=== PATIENT | male | born 1965 | race Caucasian/White ===

== ENCOUNTER 2016-12-09 10:25 | Inpatient (IN) | payer MEDICAID, OTHER ==
[~2016-12-09] VITALS: Ht 170.2 cm; Wt 58.0 kg
[~2016-12-09 10:25] MED LIST: AMLO-511 PO; MIRT15 PO; OLAN7.5T2 PO
[2016-12-09 10:45] LABS: BASOPHILS % (AUTO) 0.6 % (0.0-2.0); EOSINOPHILS % (AUTO) 2.5 % (1.0-6.0); HEMATOCRIT 49.8 % (41-53); HEMOGLOBIN 16.7 g/dL (13.5-17.5); LYMPHOCYTES # (AUTO) 3.3 K/uL (1.0-4.8); LYMPHOCYTES % (AUTO) 27.1 % (22.0-44.0); MEAN CORPUSCULAR HEMOGLOBIN 33.1 pg (26.0-34.0); MEAN CORPUSCULAR HGB CONC 33.6 G/dL (31.0-37.0); MEAN CORPUSCULAR VOLUME 99 fL (80-100); MONOCYTES # (AUTO) 0.7 K/uL (0.1-1.0); MONOCYTES % (AUTO) 5.6 % (2.0-9.0); NEUTROPHILS # (AUTO) 7.8 K/uL (1.8-7.7); NEUTROPHILS % (AUTO) 64.2 % (40.0-70.0); PLATELET COUNT (AUTO) 174 K/uL (150-450); RED BLOOD CELL COUNT(AUTO) 5.04 MIL/uL (4.50-5.90); RED CELL DISTRIBUTION WIDTH 12.9 % (11.5-14.5); WHITE BLOOD COUNT (AUTO) 12.2 K/uL (4.5-11.0)
[2016-12-09 10:55] LABS: ANION GAP 8 mmol/L (8-16); CALCIUM, TOTAL 8.1 mg/dL (8.8-10.5); CARBON DIOXIDE 29 mmol/L (22-29); CHLORIDE 102 mmol/L (98-107); CREATININE 0.84 mg/dL (0.60-1.30); GLOMERULAR FILTR. RATE CALC > 60 mL/min (>60); POTASSIUM 4.4 mmol/L (3.5-5.1); SODIUM SERUM 139 mmol/L (136-145); UREA NITROGEN, BLOOD 5 mg/dL (7-18)
[2016-12-09 11:01] LABS: ALANINE AMINOTRANSFERASE 217 U/L (12-78); ALBUMIN 3.7 g/dL (3.4-5.0); ASPARTATE AMINOTRANSFERASE 100 U/L (15-37); BILIRUBIN,TOTAL 0.2 mg/dL (0.1-1.0); TOTAL PROTEIN, SERUM 7.6 g/dL (6.4-8.2)
[2016-12-09] MEDS ORDERED: LIDOCAINE HCL BUFFERED 1% W/EPI 1:100,000 20 ML VIAL ONE (11:58)
[2016-12-09] MEDS ORDERED: HALOPERIDOL LACTATE 5 MG/ML VIAL IM ONE (12:45)
[2016-12-09] MEDS ORDERED: LORazepam 2 MG/ML VIAL IM ONE (12:45)
[2016-12-09] MEDS ORDERED: DiphenhydrAMINE HCL 50 MG/ML VIAL IM ONE (12:45)
[2016-12-09] MEDS ORDERED: PERTUSS(ACELL),DIPH,TET VAC/PF 0.5 ML VIAL IM ONE (13:00)
[2016-12-09] MEDS ORDERED: ZOLPIDEM TARTRATE 10 MG TABLET PO PRN (14:00)
[2016-12-09 17:30] VITALS: BP 148/86
[2016-12-09] MEDS: MIRTAZAPINE 15 MG TABLET PO SCH (20:50)
[2016-12-09] MEDS: OLANZapine 7.5 MG TABLET PO SCH (20:50)
[2016-12-10 08:38] VITALS: BP 132/89
[2016-12-10] MEDS: AmLODIPine BESYLATE 5 MG TABLET PO SCH (11:55)
[2016-12-10 16:17] VITALS: BP 128/78
[2016-12-10] MEDS: MIRTAZAPINE 15 MG TABLET PO SCH (21:39)
[2016-12-10] MEDS: OLANZapine 7.5 MG TABLET PO SCH (21:39)
[2016-12-10] MEDS ORDERED: ACETAMINOPHEN 325 MG TABLET PO PRN (23:15)
[2016-12-10] MEDS ORDERED: IBUPROFEN 400 MG TABLET PO PRN (23:15)
[2016-12-11 07:01] LABS: HEMOGLOBIN A1C 5.4 % (4.5-6.2)
[2016-12-11 07:14] LABS: CHOL/HDL RATIO 1.7 (4.2-7.3); THYROID STIMULATING HORMONE 2.11 uIU/mL (0.36-3.74)
[2016-12-11 08:06] VITALS: BP 152/100
[2016-12-11] MEDS: AmLODIPine BESYLATE 5 MG TABLET PO SCH (08:27)
[2016-12-11] MEDS: MULTIVITAMINS WITH MINERALS, THERAPEUTIC TABLET PO SCH (08:27)
[2016-12-11] MEDS ORDERED: MULTIVITAMINS WITH MINERALS, THERAPEUTIC TABLET PO SCH (09:00)
[2016-12-11] MEDS: OLANZapine 7.5 MG TABLET PO SCH (20:57)
[2016-12-11] MEDS: MIRTAZAPINE 15 MG TABLET PO SCH (20:57)
[2016-12-12] MEDS: HALOPERIDOL 5 MG TABLET PO PRN ×2 (09:00→17:59)
[2016-12-12] MEDS: AmLODIPine BESYLATE 5 MG TABLET PO SCH (09:00)
[2016-12-12] MEDS: LORazepam 2 MG TABLET PO PRN ×2 (09:00→17:59)
[2016-12-12] MEDS: MULTIVITAMINS WITH MINERALS, THERAPEUTIC TABLET PO SCH (09:00)
[2016-12-12 10:00] VITALS: BP 142/90
[2016-12-12] MEDS: NICOTINE 21 MG/24 HOUR PATCH TD SCH (11:33)
[2016-12-12 16:00] VITALS: BP 111/87
[2016-12-12] MEDS: OLANZapine 7.5 MG TABLET PO SCH (21:04)
[2016-12-12] MEDS: MIRTAZAPINE 15 MG TABLET PO SCH (21:04)
[2016-12-13] MEDS: AmLODIPine BESYLATE 5 MG TABLET PO SCH (08:59)
[2016-12-13] MEDS: LORazepam 2 MG TABLET PO PRN ×2 (08:59→13:15)
[2016-12-13] MEDS: MULTIVITAMINS WITH MINERALS, THERAPEUTIC TABLET PO SCH (08:59)
[2016-12-13] MEDS: NICOTINE 21 MG/24 HOUR PATCH TD SCH (08:59)
[2016-12-13] MEDS: HALOPERIDOL 5 MG TABLET PO PRN ×2 (08:59→13:15)
[2016-12-13 09:54] VITALS: BP 116/80
[2016-12-13 16:38] VITALS: BP 107/85
[2016-12-13] MEDS: OLANZapine 7.5 MG TABLET PO SCH (20:51)
[2016-12-13] MEDS: MIRTAZAPINE 15 MG TABLET PO SCH (20:52)
[2016-12-14 04:54] VITALS: BP 124/88
[2016-12-14 08:15] VITALS: BP 123/88
[2016-12-14] MEDS: AmLODIPine BESYLATE 5 MG TABLET PO SCH (08:15)
[2016-12-14] MEDS: MULTIVITAMINS WITH MINERALS, THERAPEUTIC TABLET PO SCH (08:15)
[2016-12-14] MEDS: LORazepam 2 MG TABLET PO PRN (08:17)
[2016-12-14 08:47] LABS: APPEARANCE,URINE CLEAR (CLEAR); GLUCOSE, URINE (UA) NEGATIVE (NEGATIVE); KETONES,URINE NEGATIVE (NEGATIVE); LEUKOCYTE ESTERASE ,URINE TRACE (NEGATIVE); OCCULT BLOOD,URINE NEGATIVE (NEGATIVE); PH,URINE 5.5 (5.0-8.0); PROTEIN,URINE NEGATIVE (NEGATIVE)
[2016-12-14] MEDS: NICOTINE 21 MG/24 HOUR PATCH TD SCH (09:00)
[2016-12-14 09:16] LABS: ADD UA MICROSCOPIC YES
[2016-12-14 09:34] LABS: RBC,URINE None Seen /HPF (0-2)
[2016-12-14 09:35] LABS: SQUAMOUS EPITHELIAL CELL,UR Few /LPF (None Seen)
[2016-12-14 16:27] VITALS: BP 123/88
[2016-12-14] MEDS: OLANZapine 7.5 MG TABLET PO SCH (20:51)
[2016-12-14] MEDS: MIRTAZAPINE 15 MG TABLET PO SCH (20:52)
[2016-12-15] MEDS: MULTIVITAMINS WITH MINERALS, THERAPEUTIC TABLET PO SCH (08:43)
[2016-12-15] MEDS: AmLODIPine BESYLATE 5 MG TABLET PO SCH (08:43)
[2016-12-15] MEDS: NICOTINE 21 MG/24 HOUR PATCH TD SCH (09:00)
[2016-12-15 09:24] VITALS: BP 136/86
[2016-12-15] MEDS ORDERED: MULT-723 PO (11:15)
== END 2016-12-15 14:00 | disposition home or self-care (01) | DRG 750 ==
LOC: EMS 10:30 → 3EC 17:17 → 3EI 12-14 19:27
PROVIDERS: ADMIT Psychiatry & Neurology Psychiatry; ATTEND Psychiatry & Neurology Psychiatry
PROC: 0HQEXZZ Repair Left Lower Arm Skin, External Approach (ICD-10-PCS; principal; 2016-12-09)
PROC: 3E0234Z Introduction of Serum, Toxoid and Vaccine into Muscle, Percutaneous Approach (ICD-10-PCS; 2016-12-09)
DX: F25.9 Schizoaffective disorder, unspecified (principal); K74.60 Unspecified cirrhosis of liver; R45.851 Suicidal ideations; J44.9 Chronic obstructive pulmonary disease, unspecified; I10 Essential (primary) hypertension; B18.2 Chronic viral hepatitis C; F31.9 Bipolar disorder, unspecified; F10.20 Alcohol dependence, uncomplicated; F12.10 Cannabis abuse, uncomplicated; J45.909 Unspecified asthma, uncomplicated; S66.922A Laceration of unspecified muscle, fascia and tendon at wrist and hand level, left hand, initial encounter; K21.9 Gastro-esophageal reflux disease without esophagitis; F17.210 Nicotine dependence, cigarettes, uncomplicated; X78.1XXA Intentional self-harm by knife, initial encounter; Y99.8 Other external cause status; Y93.89 Activity, other specified; Z71.51 Drug abuse counseling and surveillance of drug abuser; Z71.41 Alcohol abuse counseling and surveillance of alcoholic; Z59.0 Homelessness; Y92.89 Other specified places as the place of occurrence of the external cause; Z78.1 Physical restraint status; Z79.899 Other long term (current) drug therapy; Z23 Encounter for immunization
CPT/HCPCS: 12001; 83036; 84443; 87086; 90471; 90715; 96372; 99285; G0480; J1200; J1630; J2060; J3490

== ENCOUNTER 2017-06-07 21:15 | Emergency (ER) | payer MEDICAID, OTHER ==
[~2017-06-07] VITALS: Ht 177.8 cm; Wt 72.7 kg
[~2017-06-07 21:15] MED LIST changes: -AMLO-511 PO; +MULT-68 PO; +OMEP20 PO
[2017-06-08 00:03] LABS: BASOPHILS % (AUTO) 0.9 % (0.0-2.0); EOSINOPHILS % (AUTO) 3.9 % (1.0-6.0); HEMATOCRIT 47.4 % (41-53); HEMOGLOBIN 15.9 g/dL (13.5-17.5); LYMPHOCYTES % (AUTO) 50.3 % (22.0-44.0); MEAN CORPUSCULAR HEMOGLOBIN 32.9 pg (26.0-34.0); MEAN CORPUSCULAR HGB CONC 33.6 G/dL (31.0-37.0); MEAN CORPUSCULAR VOLUME 98 fL (80-100); MONOCYTES # (AUTO) 0.5 K/uL (0.1-1.0); MONOCYTES % (AUTO) 5.2 % (2.0-9.0); NEUTROPHILS # (AUTO) 3.9 K/uL (1.8-7.7); NEUTROPHILS % (AUTO) 39.7 % (40.0-70.0); PLATELET COUNT (AUTO) 288 K/uL (150-450); RED BLOOD CELL COUNT(AUTO) 4.84 MIL/uL (4.50-5.90); RED CELL DISTRIBUTION WIDTH 13.2 % (11.5-14.5); WHITE BLOOD COUNT (AUTO) 9.9 K/uL (4.5-11.0)
[2017-06-08 00:10] LABS: ANION GAP 10 mmol/L (8-16); CARBON DIOXIDE 29 mmol/L (22-29); CHLORIDE 105 mmol/L (98-107); CREATININE 0.82 mg/dL (0.60-1.30); GLOMERULAR FILTR. RATE CALC > 60 mL/min (>60); POTASSIUM 4.2 mmol/L (3.5-5.1); SODIUM SERUM 144 mmol/L (136-145); UREA NITROGEN, BLOOD 7 mg/dL (7-18)
[2017-06-08 00:15] LABS: ALANINE AMINOTRANSFERASE 124 U/L (12-78); ASPARTATE AMINOTRANSFERASE 74 U/L (15-37); BILIRUBIN,TOTAL 0.3 mg/dL (0.1-1.0); TOTAL PROTEIN, SERUM 8.1 g/dL (6.4-8.2)
[2017-06-08 03:01] VITALS: BP 130/70
== END 2017-06-08 03:08 | disposition home or self-care (01) ==
LOC: EMS 21:18
DX: F10.229 Alcohol dependence with intoxication, unspecified (principal); F17.210 Nicotine dependence, cigarettes, uncomplicated; F12.90 Cannabis use, unspecified, uncomplicated; Z59.0 Homelessness; F20.9 Schizophrenia, unspecified; F32.9 Major depressive disorder, single episode, unspecified; I10 Essential (primary) hypertension; J44.9 Chronic obstructive pulmonary disease, unspecified; K21.9 Gastro-esophageal reflux disease without esophagitis; Z90.49 Acquired absence of other specified parts of digestive tract; Z79.899 Other long term (current) drug therapy
CPT/HCPCS: 36415; 80053; 80307; 85025; 99284; 99406; G0480

== ENCOUNTER 2019-01-19 17:04 | Emergency (ER) | payer OTHER ==
[~2019-01-19] VITALS: Ht 170.2 cm; Wt 68.2 kg
[2019-01-19] MEDS ORDERED: PERTUSS(ACELL),DIPH,TET VAC/PF 0.5 ML VIAL IM ONE (17:30)
[2019-01-19 18:22] VITALS: BP 142/88
== END 2019-01-19 18:27 | disposition home or self-care (01) ==
LOC: EMS 17:06
DX: S01.412A Laceration without foreign body of left cheek and temporomandibular area, initial encounter (principal); I10 Essential (primary) hypertension; Z79.899 Other long term (current) drug therapy; Z59.0 Homelessness; W22.8XXA Striking against or struck by other objects, initial encounter; Y93.89 Activity, other specified; Y92.89 Other specified places as the place of occurrence of the external cause; Y99.8 Other external cause status
CPT/HCPCS: 90471; 90715

== ENCOUNTER 2019-02-13 10:15 | Emergency (ER) | payer OTHER ==
[~2019-02-13] VITALS: Ht 172.7 cm; Wt 72.7 kg
[2019-02-13 10:50] LABS: HEMATOCRIT 46.5 % (41-53); HEMOGLOBIN 15.6 g/dL (13.5-17.5); MEAN CORPUSCULAR HEMOGLOBIN 33.1 pg (26.0-34.0); MEAN CORPUSCULAR VOLUME 99 fL (80-100); RED BLOOD CELL COUNT(AUTO) 4.72 MIL/uL (4.50-5.90)
[2019-02-13 10:51] LABS: BASOPHILS % (AUTO) 1.4 % (0.0-2.0); EOSINOPHILS % (AUTO) 1.8 % (1.0-6.0); LYMPHOCYTES # (AUTO) 2.6 K/uL (1.0-4.8); LYMPHOCYTES % (AUTO) 41.8 % (22.0-44.0); MEAN CORPUSCULAR HGB CONC 33.5 G/dL (31.0-37.0); MONOCYTES # (AUTO) 0.7 K/uL (0.1-1.0); MONOCYTES % (AUTO) 11.7 % (2.0-9.0); NEUTROPHILS # (AUTO) 2.7 K/uL (1.8-7.7); NEUTROPHILS % (AUTO) 43.3 % (40.0-70.0); PLATELET COUNT (AUTO) 163 K/uL (150-450); RED CELL DISTRIBUTION WIDTH 13.2 % (11.5-14.5)
[2019-02-13 11:06] LABS: ANION GAP 13 mmol/L (8-16); CARBON DIOXIDE 25 mmol/L (22-29); CHLORIDE 100 mmol/L (98-107); CREATININE 0.72 mg/dL (0.60-1.30); GLOMERULAR FILTR. RATE CALC > 60 mL/min (>60); GLUCOSE,RANDOM 98 mg/dL (70-110); POTASSIUM 4.7 mmol/L (3.5-5.1); SODIUM SERUM 138 mmol/L (136-145); UREA NITROGEN, BLOOD 5 mg/dL (7-18)
[2019-02-13 11:10] LABS: AMPHET/METH SCREEN,URINE NEGATIVE (NEGATIVE); BARBITURATE SCREEN, URINE NEGATIVE (NEGATIVE); BENZODIAZEPINES SCREEN,URINE NEGATIVE (NEGATIVE); CANNABINOID SCREEN,URINE NEGATIVE (NEGATIVE); COCAINE SCREEN,URINE NEGATIVE (NEGATIVE); METHADONE SCREEN, URINE NEGATIVE (NEGATIVE); OPIATE SCREEN,URINE NEGATIVE (NEGATIVE)
[2019-02-13 11:11] LABS: PHENCYCLIDINE SCREEN,URINE NEGATIVE (NEGATIVE)
[2019-02-13 11:12] LABS: ALANINE AMINOTRANSFERASE 152 U/L (12-78); ALKALINE PHOSPHATASE 62 U/L (46-116); ASPARTATE AMINOTRANSFERASE 151 U/L (15-37); BILIRUBIN,TOTAL 0.5 mg/dL (0.1-1.0); TOTAL PROTEIN, SERUM 7.7 g/dL (6.4-8.2)
[2019-02-13 15:05] VITALS: BP 124/71
== END 2019-02-13 15:07 | disposition home or self-care (01) ==
LOC: EMS 10:15
DX: F69 Unspecified disorder of adult personality and behavior (principal); R07.89 Other chest pain; K70.30 Alcoholic cirrhosis of liver without ascites; F10.129 Alcohol abuse with intoxication, unspecified; F20.9 Schizophrenia, unspecified; I10 Essential (primary) hypertension; F17.210 Nicotine dependence, cigarettes, uncomplicated; Z59.4 Lack of adequate food; Z59.0 Homelessness; Y90.8 Blood alcohol level of 240 mg/100 ml or more
CPT/HCPCS: 36415; 80053; 80307; 84484; 85025; 93005; 99291; G0480

== ENCOUNTER 2019-04-22 19:07 | Emergency (ER) | payer OTHER ==
[~2019-04-22] VITALS: Ht 170.2 cm; Wt 59.1 kg
[2019-04-22] MEDS ORDERED: [UNRECOGNIZED DRUG - REMARK] PO (19:29)
[2019-04-22 19:56] VITALS: BP 121/90
[2019-04-22] MEDS ORDERED: ACETAMINOPHEN 500 MG TABLET PO ONE (20:00)
== END 2019-04-22 20:41 | disposition home or self-care (01) ==
LOC: EMS 19:09
DX: M21.611 Bunion of right foot (principal); M21.612 Bunion of left foot; I10 Essential (primary) hypertension; F20.9 Schizophrenia, unspecified; F17.210 Nicotine dependence, cigarettes, uncomplicated
CPT/HCPCS: 99406